=== PATIENT | male | born 2000 | race Caucasian/White ===

== ENCOUNTER 2025-07-06 11:00 | Emergency (ER) | payer OTHER, SELFPAY ==
[2025-07-06 11:10] VITALS: BP 128/79
[2025-07-06 11:27] VITALS: BP 125/84
--- NOTE | 2025-07-06 11:31 | ED.GENMED ---
History of Present Illness
General
Chief Complaint: Chest Pain
Source: patient
Exam Limitations: none
Time Seen by Provider: 07/06/25 11:25
History of Present Illness
History of Present Illness:
24yoM with no significant past medical history presenting with his for evaluation of chest pain. Patient woke up this morning and was smoking a cigarette around 5 AM. While he was smoking, patient started to feel a discomfort in the left side
of his chest which felt like 'gas in the heart.' He then noticed that his left arm felt tight. He went back to bed after this and states that he was difficult to arouse from sleep. Patient states he felt like he was in a 'dream like' state.
This has resolved and he is now acting normally per his . His chest pain has also resolved but he continues to have a tightness sensation in the left arm. He denies any shortness of breath, dizziness, headache, vomiting, leg swelling, calf
pain. He smokes 4 cigarettes daily.
Phy Exam
General Physical Exam
General Presentation: well appearing and no apparent distress
General age: appears stated age
General Skin: warm and dry
General Habitus: normal
General Mental: alert
ENT Exam
ENT Exam: normocephalic
Cardiovascular Exam
Cardiovascular Exam: regular rate/rhythm, no edema, no murmur and normal peripheral pulses (2+ radial and PT pulses bilaterally)
Pulmonary Exam
Pulmonary Exam: lungs clear, no respiratory distress, no rales, no crackles, no rhonchi and no wheezing
Neurological Exam
Neurological Exam: alert
Chase Coma Scale
Eye Opening: Spontaneous
Verbal Response: Oriented
Motor Response: Obeys Commands
GCS Total Score: 15
Skin Exam
Skin Exam: normal color and warm/dry
Psychiatric Exam
Psychiatric Exam: normal mood/affect
Scores
Heart Score for Chest Pain Patients
STEMI patient?: No
History: Slightly or Non-Suspicious
ECG: Normal
Age: </= 45 years
Risk Factors: No Risk Factors
Troponin: </= Normal Limit
Heart Score for Chest Pain Patients: 0
Heart Score Risk: 2.5% MACE over next 6 weeks
Course
Orders/Labs/Results
Orders:
Orders
07/06/25 11:14
Electrocardiogram (*1) Urgent
Reason for Study: Chest Pain
EKG- Treatment ONCE
07/06/25 11:40
Cardiac Monitoring- Treatment ONCE
CR Chest - 2 Views Urgent
Comment:
Reason For Exam: CP
07/06/25 11:47
Complete Blood Count/With Diff Urgent
Comprehensive Metabolic Panel Urgent
Troponin I Urgent
Abnormal Lab Results
07/06/25
11:47
Absolute Monos (auto) 1.0 H 10^3/uL
(0.1-0.6)
Lymphocytes % 15.8 L %
(20.5-51.1)
Monocytes % 12.7 H %
(1.7-9.3)
Albumin 5.2 H g/dl
(3.5-5.0)
07/06/25 11:47
07/06/25 11:47
Vital Signs
Initial and Last Documented VS:
Initial Vital Signs
Temp Pulse Resp BP Pulse Ox
98.4 F 87 18 128/79 100
07/06/25 11:10 07/06/25 11:10 07/06/25 11:10 07/06/25 11:10 07/06/25 11:10
Last Documented Vital Signs
Temp Pulse Resp BP Pulse Ox
98.1 F 62 12 96/75 99
07/06/25 13:03 07/06/25 13:03 07/06/25 13:03 07/06/25 13:03 07/06/25 13:03
MDM/Problems Addressed
Differential Diagnosis Includes:
24yoM here with chest pain and L arm discomfort that began earlier today while smoking a cigarette. Now feeling improved. also reports that it was difficult to wake him up this morning. Patient awake and alert on assessment. VSS. He is well
appearing in no distress and exam is reassuring. Differential diagnosis includes: Musculoskeletal, pneumothorax, pneumonia, bronchospasm, doubt ACS given age and lack of risk factors
Initial ED plan: Triage EKG shows normal sinus rhythm without ischemic changes. Will check cardiac labs and chest x-ray.
*Pulse Oximetry
SaO2: 100
Oxygen Mode of Delivery: Room air
Patient hypoxic: no
*EKG
Interpreted by ED Provider?: Yes
EKG Intrepretation Date: 07/06/25
Heart Rate: 69
Rate: normal
Rhythm: sinus
[place]: normal axis
Interval: normal interval
QRS Pattern: normal QRS
Ischemia: no ischemia
*Critical Care Note
Total Time (30-74mins, 75-104mins- exclusive of procedures): Not Applicable
Update Note
Update Note:
Labs unremarkable including normal blood counts, renal function, electrolytes. Troponin undetectable. Chest x-ray is clear. Patient asymptomatic on reassessment and vitals stable throughout ED stay. No indication for hospitalization. He was
advised to follow-up with a PCP and ED return precautions reviewed. Patient and in agreement with plan and he was discharged in stable condition.
ED Attending Note
-
Portions of this chart may have been created with voice recognition software.� Occasional wrong word or��sound alike� substitutions may have occurred due to the inherent limitations of voice recognition software.
Discharge Plan
Departure
Patient Disposition: Home (Routine Discharge)
Date of Disposition: 07/06/25
Time of Disposition: 13:01
Patient with high blood pressure during this ER visit?: No
Discharge Problem:
Chest pain
Instructions: Chest Pain PCP Follow Up
Referrals:
[facility] [Provider Group]
NONE,* [Family Provider, Internal Medicine]
Stand Alone Forms: Return to Work
Activity Restrictions/Additional Instructions:
Please call on Tuesday to schedule a follow-up appointment with a family doctor. Return to the ER with any new or worsening symptoms.
Interventions
Interventions:
*Risk Screen - Suicide Last Done: 07/06/25 11:10
*General Assessment Last Done: 07/06/25 11:10
*Neglect/Abuse Screening Last Done: 07/06/25 11:10
*ED- Fall Risk Assessment Last Done: 07/06/25 11:37
*ED COVID-19 Vaccine History Last Done: 07/06/25 11:53
*ED Influenza Vaccine History Last Done: 07/06/25 11:53
*Nursing Disposition Last Done: 07/06/25 13:09
ED- Cardiac Assessment Last Done: 07/06/25 11:51
Discharge Date and Time
Discharge Date/Time: 07/06/25 13:11
Print Language: [id number]
[2025-07-06 11:52] VITALS: BMI 21.7
[2025-07-06 12:00] VITALS: BP 112/66
[2025-07-06 12:07] LABS: Hematocrit 46.4 % (39.0-52.0); Hemoglobin 15.6 g/dL (13.0-18.0); Mean Corp Hgb Conc. 33.6 g/dL (33.0-37.0); Mean Corpuscular Volume 88.7 fL (80.0-94.0); Nucleated Red Blood Cells % 0 % (-); Platelet Count 228 10^3/uL (130-400); Red Cell Dist. Width 12.4 % (11.5-14.5)
[2025-07-06 12:20] LABS: ALT (SGPT) 26 U/L (0-50); AST (SGOT) 27 U/L (17-59); Albumin 5.2 g/dl (3.5-5.0); Alkaline Phosphatase 58 U/L (38-126); Blood Urea Nitrogen 14 mg/dl (9-20); Calcium 10.2 mg/dl (8.4-10.2); Carbon Dioxide 29 mmol/L (22-30); Chloride 105 mmol/L (98-107); Estimated Creatinine Clearance > 125 ml/min; Glucose 92 mg/dl (70-99); Potassium 4.2 mmol/L (3.5-5.1); Sodium 141 mmol/L (135-145); Total Protein 7.7 g/dl (6.3-8.2); eGFR > 60.00
[2025-07-06 12:32] LABS: Troponin I < 0.012 ng/ml
[2025-07-06 13:03] VITALS: BP 96/75
== END 2025-07-06 13:11 | disposition home or self-care (01) ==
LOC: EMR 11:00
PROVIDERS: Physician Assistant; EMERGENCY PHYSICIAN Emergency Medicine
DX: R07.9 Chest pain, unspecified (principal); F17.210 Nicotine dependence, cigarettes, uncomplicated
CPT/HCPCS: 99285; 71046; 80053; 84484; 85025; 93005